=== PATIENT | female | born 1945 | race Caucasian/White ===

== ENCOUNTER 2024-04-12 08:52 | Outpatient (AMB) | payer MEDICARE, SELFPAY ==
--- NOTE | 2024-04-12 09:04 | A.OFFVIS_ITS ---
VS Expanded 04/12/24 09:05 04/14/24 09:04 Height 5 ft 7 in 5 ft 7 in Weight 162 lb 0.636 oz 162 lb BMI 25.4 25.4 Intake Visit Reasons: Overweight Nutrition Presentation Details: Patient presents for medical nutrition therapy for overweight with type 2 diabetes. Patient was referred by PCP and Caleb Heredia meal 2 large cups of coffee throughout the day with milk or cream and no sugar added Gets up early B: 4 am eggs and multigrain water 10 am 1 -2 protein pancakes 12: banana 3 pm turkey tenderloin, saute veggies (zucchinis/pepper) 5pm: cereal cheerios /milk physical activity: daily life activities eoth/smoking: --- BS Monitoring Most Recent Diabetes Results: No Data to Display CEY-Tikymhi-Xl.Jeor Equation Height: 5 ft 7 in Weight: 162 lb Resting Metabolic Rate: 1257.87 Calculated Activity Level: Mild Activity Calories Needed to Maintain Weight: 1729.57 Diagnosis Nutrition problem #1: food nutri know defi As related to (etiology) #1: diagnosis As evidenced by (sign/symptom) #1: knowledge deficit of diet Assessment & Plan Assessment & Plan (1) T2DM (type 2 diabetes mellitus): Code(s): E11.9 - Type 2 diabetes mellitus without complications Category: Medical Plan: Wt: 74 Kg ( 04/2024 ) Est kcal needs as per MSJ: 1800 (40% carb, 30% protein/fat) Est fluid needs as per 30 ml/d: 2200 Est prot per day as per 1 g/kg bw: 74 Recommend fiber intake : 8-10 g per day and gradually increase to 25-28 g per day for women and 35-38 g for men or as tolerated Recommend sodium intake per day : less than 2000 mg Educated patient on: ( R = reviewed V = verbalizes understanding N/R = needs review N/A = not applicable * Food sources of carbohydrate, adequate serving sizes and its role in various health conditions: R * Differences between complex carbohydrates a simple carbohydrates, role of fiber in diet: R * Lean protein sources of foods: R * Differences between types of fats and role in diet (mono on saturated fat fatty acids, saturated fatty acids, trans fats): R V N/R * Food sources of sodium in salt and healthy modifications for heart health in kidney health: R V R/V * Vitamins and minerals: R V N/R * Healthy plate method concept: R * Physical activity: Benefits a precaution: R V N/R * Hypoglycemia protocol (rule of 15): R V N/R * Dietary prevention of Hyperglycemia: R Patient Instructions: Work on reducing sugars , have a fruit in place of pastries follow healthy plate method at dinner Coding Level of Care Code Nutr Indiv Intake (59845) Diagnoses T2DM (type 2 diabetes mellitus) E11.9 Time Spent (min) 30
[2024-04-12 09:05] VITALS: BMI 25.4
[2024-04-14 09:04] VITALS: BMI 25.4
== END 2024-04-13 08:11 | disposition home or self-care (01) ==
PROVIDERS: PCP Internal Medicine; Visit Provider Dietitian, Registered
DX: E11.9 Type 2 diabetes mellitus without complications (principal)

== ENCOUNTER → 2024-04-12 08:52 | Outpatient (BNVA) | payer MEDICARE, SELFPAY | PROVIDERS: PCP Internal Medicine; Visit Provider Dietitian, Registered | DX: E11.9 Type 2 diabetes mellitus without complications (principal); E66.3 Overweight; Z68.25 Body mass index [BMI] 25.0-25.9, adult; Z71.3 Dietary counseling and surveillance | CPT/HCPCS: 97802 ==

== ENCOUNTER 2024-11-05 09:43 | Outpatient (AMB) | payer MEDICARE, SELFPAY ==
--- OUTSIDE RECORDS SUMMARY | 2024-11-05 09:53 | XMS_ITS | Patient Health Record ---
Author Organization [facility] Address [address] [facility] [place] [address] Care Team Providers Care Leather Goods I Assembler Name Role Phone Adam KENNY, Aden Primary Care Provider Andrea Kohler Unavailable [phone] Allergies Allergen (clinical drug ingredient) Drug/Non Drug Allergy documented on EMR Reaction Allergy Type Onset Date Status Penicillin Unknown Drug Allergy Active Reason For Referral No Information Medications Medication SIG (Take, Route, Frequency, Duration) Notes Start Date End Date Status Gabapentin 100 MG 3 capsules Orally Th ree times a day for 30 day(s) Not-Taking Vitamin D Active metFORMIN HCl 500 MG 1 tablet with a eliseo l Orally Twice a day Active Extra Depth Diabetic Shoes with 3 Pair Custom heat-molded multi-density innersoles for 1 year Dx: 02/03/2024 A ctive Social History Tobacco Use: Social History Observation Description Date Details (start date - stop date) Never Smoker NA - NA Tobacco Use/Smoking Question Answer Notes Are you a: nonsmoker Additional Findings: Tobacco Non-User Current no n-smoker Tobacco use other than smoking: Question Answer Notes Are you an other tobacco user? No Problems Problem Type SNOMED Code ICD Code Onset Dates Problem Status W/U Status Risk Notes Problem Hammer toe (197283344) Hammer toe (735.4) Active confirmed Problem Neuralgia - Neuritis (729.2) Active confirmed Problem Onychomycosis (415944954) Onychomycosis (110.1) Active confirmed Problem Pain in limb (29733604) Pain in Limb (729.5) Active confirmed Problem Polyneuropathy due to type 2 diabetes mellitus (428877461) Type 2 diabetes mellitus with diabetic polyneuropathy (E11.42) Active confirmed Vital Signs Height 5 ft 7 in in 02/03/2024 Weight 160 lbs 02/03/2024 BMI 25.06 kg/m2 02/03/2024 Procedures Procedure Date Ordered Date Performed Result Body Sit e 20943-ADXE SKIN LESIONS, 2 TO 4 02/03/2024 N/A Encounters Encounter Location Date Provider Diagnosis [facility] [place] [address] [place] [id number] 02/03/2024 Andrea Martinez Type 2 diabetes mellitus with diabetic polyneuropathy E11.42 ; Xerosis cutis L85.3 and Skin disease L98.9 Assessments Encounter Date Diagnosis (ICD Code) Assessment Notes Treatment Notes Treatment Clinical Notes Section Notes 02/03/2024 Type 2 diabetes mellitus with diabetic polyneuropathy (ICD-10 - E11.42) Patient Educated with: DIABETIC FOOT CARE INSTRUCTIONS. pdf (DIABETIC FOOT CARE INSTRUCTIONS. pdf) 02/03/2024 Xerosis cutis (ICD-10 - L85.3) 02/03/2024 Skin disease (ICD-10 - L98.9) Plan Of Treatment Pending Test Test Name Order Date 20676-GFXTETT NAIL, 6 OR MORE 03/04/2012 52169-YDXU SKIN LESIONS, 2 TO 4 02/03/20 24 Next Appt Details Provider Name:Andrea Martinez, 02/01/2025 09:00:00 AM, [address] [address], [place], [address], Insurance Providers Payer Name Payer Address Payer Phone Subscriber Number Group Number Insured Name Patient Relationship to Insured Coverage Start Date Coverage End Date Medicare National [employer] [address] [place] [address] [id number] Caroline Bellamy Self - [facility] [address] [place] [address] [id number] Josesito Caroline Self - patient is the insured Medical (General) History Medical History History ICD Code mumps measles chicken pox gall bladder problems Back,Hip,and Knee pain skin cancer covid-19 type II diabetes Joint implants/screws Surgical History Surgery Date(Month/Year) section gall bladder knee replacement appendectomy hysterectomy
--- OUTSIDE RECORDS SUMMARY | 2024-11-05 09:53 | XMS_ITS ---
Author Organization [facility] Address [address] [place] [address] Care Team Providers Care Glove Finisher Name Role Phone Aden Medina MD Primary Care Provider Andrea Kohler [phone] REASON FOR VISIT Seen Sooner Encounters Encounter Location Date Provider Diagnosis [address] [address] 04/16/2024 Andrea Martinez Plan Of Treatment Next Appt Details Provider Name:Andrea Martinez, 02/01/2025 09:00:00 AM, [facility] [address], [place], [address], Progress Notes * Caroline CHRISTIANSON LDOB: 7 (79 yo F)Acc No.[id number]:04/16/2024 Progress Notes Patient:?Caroline CHRISTIANSON Provider:?Andrea Martinez DPM :1945???Age:79 Y???Sex:Female D ate:04/16/2024 Address:[address] [place] [address], [id number] Pcp:Aden Medina MD Subjective: * Chief Complaints: * ???1. Seen Sooner. * Medical History:? Objective: * Vitals:? Assessment: Plan: * Treatment: * Images: * The named appointment provid er may or may not be the originator of this progress note, and it is not deemed complete until electronically signed by the appointment provider. Sign off status: Pending * Provider:?Andrea Martinez DPM Date:? 024 Generated for Yaya terrell/Magali/Maribeth on:?11/05/2024 09:53 AM EST
--- OUTSIDE RECORDS SUMMARY | 2024-11-05 09:53 | XMS_ITS ---
Author [facility] Address [address] [facility] [place] [address] Care Team Providers Care Front End Technician Name Role Phone Aden Medina MD Primary Care Provider Andrea Kohler Unavailable [phone] Allergies Allergen (clinical drug ingredient) Drug/Non Drug Allergy documented on EMR Reaction Allergy Type Onset Date Status Penicillin Unknown Drug Allergy Active REASON FOR VISIT Last Visit PCP 01/30/24, At Risk Footcare, Skin problem Medications Medication SIG (Take, Route, Frequency, Duration) [...] Additional Findings: Tobacco Non-User Current no n-smoker Alcohol Screen Question Answer Notes Did you have a drink containing alcohol in the p ast year? Yes Points 0 Interpretation Negative Tobacco use other than smoking: Question Answer Notes Are you an other tobacco user? No Problems Problem Type SNOMED Code ICD Code Onset Dates Problem Status W/U Status Risk Notes Problem Polyneuropathy due to type 2 diabetes mellitus (016293095) Type 2 diabetes mellitus with diabetic polyneuropathy (E11.42) Active confirmed Vital Signs Height 5 ft 7 in in 02/03/2024 Weight 160 lbs 02/03/2024 BMI 25.06 kg/m2 02/03/2024 Procedures Procedure Date Ordered Date Performed Result Body Sit e 24417-TXTW SKIN LESIONS, 2 TO 4 02/03/2024 N/A Encounters Encounter Location Date Provider Diagnosis [facility] [place] [address] [address] 02/03/2024 Andrea Martinez Type 2 diabetes mellitus [...] disease (ICD-10 - L98.9) Plan Of Treatment Medication Medication Name Sig Start Date Stop Date Notes Extra Depth Diabetic Shoes w ith 3 Pair Custom heat-molded multi-density innersoles for 1 year Dx: 02/03/2024 Treatment Notes Assessment Notes Type 2 diabetes mellitus wit h diabetic polyneuropathy Patient Educated with: DIABETIC FOOT CARE INSTRUCTIONS.pdf (DIABETIC FOOT CARE INSTRUCTIONS.pdf) Pending Test Test Name Order Date 10402-MUBY SKIN LESIONS, 2 TO 4 02/03/20 24 Next Appt Details Follow Up: 1 Year, Reason: Provider Name:Andrea Martinez, 02/01/2025 09:00:00 AM, [address] [facility] [address], [place], [address], Procedure Notes * Category Sub-Category Detail Notes Keratoma Treatment Parring or Cutting o f Benign Hyperkeratotic Lesion(s) 72478 ( 2-4 Lesions ) - The Benign hyperkeratotic lesions, as described above were pared, and/or cut utilizing a sterile 15 blade, tissue nippers, and/or dremel Progress Notes * Caroline CHRISTIANSON LDOB: 7 (79 yo F)Acc No.[id number]:02/03/2024 Progress Notes Patient:?Caroline Christianson Provider:?Andrea Martinez DPM :1945???Age:79 Y???Sex:Female D ate:02/03/2024 Address:[address] [facility] [address], [id number] Pcp:Aden Medina MD Subjective: * Chief Complaints: * ???Last Visit PCP 01/30/24At Risk FootcareSkin problem * HPI: ???At Risk footcare:?Pt States Last PCP Visit:?Date?01/30/2024 ???Skin problems:?Nature:?dryness.?Location:?B/L , Forefoot.?Duration:?several months.?Onset/Cause:?unknown.?Course:?worse.?Severity/Quality:?moderate.? * ROS:?General/Constitutional:?Nausea?denies.?Vomiting?denies.?Hunger Thirst?denies.?Loss appetite?denies.?Chills?denies.?Fatigue?denies.?Fever?denies.?Night Sweats?denies.?Unexplained weight loss?denies.?Unexplained weight gain?denies.?HEENTM:?Dentures?admits.?Dizziness?denies.?Glasses/contacts?denies.?Retinopathy?de nies.?Blurred/double vision?denies.?TMJ?denies.?Discharge/drainage?denies.?Implants?denies.?Sore throat?denies.?Dental implants?denies.?Hard of hearing ?admits.?Difficulty chewing/swallowing/speaking?denies.?Nose bleeds?denies.?Sore mouth?denies.?Respiratory:?On Oxygen?denies.?Pneumonia/pleurisy?denies.?Bronchitis?denies.?Emphysema?denies.?C oughing?denies.?Cough blood?denies.?Shortness of breath?denies.?Wheezing?denies.?Cardiovascular:?Pacemaker?denies.?MVP?denies.?WPW?denies.?CHF?denies.?Heart attack?denies.?Septal defect?denies.?Rapid beat?denies.?Chest pain ?denies.?Atrial Fib.?denies.?Murmur/Palpitations?denies.?Gastrointestinal:?Hemorrhoids?denies.?Stomach/Abdominal pain?admits.?Dark blood stool?denies.?Irritable bowel ?admits.?Constipation?admits.?Diarrhea?admits.?Hematology:?Swelling?denies.?Clots?denies.?Varicose Veins?denies.?Bruising?denies.?Bleeding problem?denies.?Genitourinary:?Blood urine?denies.?Frequent/Painfu/urination/bladder control?denies.?Kidney stones?denies.?Infection (UTI)?denies.?Nephropathy?denies.?sex trans dis (STD)?denies.?Prostate?denies.?Musculoskeletal:?Hammertoes?denies.?Bunions?denies.?Back Pain?denies.?Muscle Cramps/ Resting?denies.?Muscle cramps / walking?denies.?Generalized aches and pains?denies.?Weakness?denies.?Integ.:?Albrecht?denies.?Scars?denies.?Corns/calluses?denies.?Ingrown nails?denies.?Painful nails?denies.?Open Sores?denies.?Rashes?denies.?Neurologic:?Difficulty sleeping?denies.?Brain disorder?denies.?Numbness?denies.?Balance trouble?denies.?Confusion?denies.?Fainting/blackouts?denies.?Tingling?denies.?Tr emors?denies.? * Medical History:? * Surgical History:? s ection 1972/1973gall bladder knee replacement appendectomy hysterectomy * Hospitalization/Major Diagno stic Procedure:?No Hospitalization History. * Family History:?Mother: dece ased, multiple sclerosis.?Father: , cancer, heart attack.?Daughter(s): cancer.?Maternal Grand Father: heart attack.?Spouse: alive.? * Social History:?Tobacco Use:?Tobacco Use/Smoking?Are you a:?nonsmoker ?Additional Findings: Tobacco Non-User?Current non-smoker ?Tobacco use other than smoking?Are you an other tobacco user??No ???Drugs/Alcohol:?Drugs?Have you used drugs other than those for medical reasons in the past 12 months??No ?Alcohol Screen?Did you have a drink containing alcohol in the past year??Yes ?Points?0 ?Interpretation?Negative ???Miscellaneous:?Caffeine: yes, frequency:, 1-2 cups per day. ?Marital status: . * Medications:?TakingmetFORMIN HCl 500 MG Tablet 1 tablet with a meal Orally Twice a dayVitamin D Taking metFORMIN HCl 500 MG Tablet 1 tablet with a meal Orally Twice a dayTaking Vitamin D Not-Taking/PRNGabapentin 100 MG Capsule 3 capsules Orally Three times a dayMedication List reviewed and reconciled with the patientNot- Taking/PRN Gabapentin 100 MG Capsule 3 capsules Orally Three times a dayMedication List reviewed and reconciled with the patient * Allergies:?Penicillinyes[All ergies Verified] Objective: * Vitals:?Ht: 5 ft 7 in, Wt: 1 60, BMI:25.06, Shoe size: 9. * Examination: ???Ophthalmology Referral: ?DIABETES EYE EXAM?Neurological: ?SENSORY:? Neurological exam demonstrates, reduced vibration sensation, 5.07 monofilament test performed at plantar aspects of 5 varied sites per foot shows sensation, reduced , at Forefoot, B/L.?Vascular: ?DP PULSES:? 11/13, B/L.?PT PULSES:? 11/13, B/L.?CAPILLARY FILL TIME:?3 secs. per digit. B/L.?SKIN TEMPERTURE GRADIENT OF THE LOWER EXTERMITIES:?normal, B/L.?HAIR GROWTH/TEXTURE/ELASTICITY/TURGOR:?normal, B/L.?PIGMENTATION:?normal, B/L.?EDEMA:?absent, B/L.?TELANGECTASIA:?absent, B/L.?Dermatologic: ?SKIN FINDINGS:? Skin exam reveals Keratotic lesion(s) located at, SUB MTH (s), 1, Left, SUB MTH (s), 5, Right, Heel(s), B/L, Skin shows sign(s) of, dryness, scaling, in a stocking fashion, no fissure(s) present, B/L.?General Examination: ?GENERAL APPEARANCE:?pleasant, alert, well nourished, well developed, well hydrated, with good attention to hygene/body habitus, and in no acute distress.?ORIENTED:?person,place, and time.?FOOT EXAM:?Orthopedic: ?MUSCLE STRENGTH:?5/5 all groups in a symmetrical fashion , B/L.?FOOT MORPHOLOGY:? Pes Planus structure, LEFT.? Assessment: * Assessment: 1.?Type 2 diabetes mellitus with diabetic polyneuropathy - E11.42?2.?Xerosis cutis - L85.3?3.?Skin disease - L98.9 (Primary)? Plan: * Treatment: * Procedures:?Keratoma Treatment:?Parring or Cutting of Benign Hyperkeratotic Lesion(s)?16942 ( 2-4 Lesions ) - The Benign hyperkeratotic lesions, as described above were pared, and/or cut utilizing a sterile 15 blade, tissue nippers, and/or dremel.? * Procedure Codes:?02551 TRIM SKIN LESIONS, 2 TO 4, Modifiers: XS * Preventive Medicine:? ??Counseling:?Discussion:?-03: Office or other outpatient visit for the evaluation and management of a new patient, which required a medically appropriate history and/or examination and LOW level of DECISION MAKING for: 1 STABLE ACUTE UNCOMPLICATED PROBLEM, 2 OR MORE MINOR PROBLEMS, OR 1 STABLE CHRONIC PROBLEM, THAT POSE(S) A LOW RISK FOR MORBIDITY/MORTALITY. The visit on the day of the encounter encompassed interpreting the data and educating the patient as to the nature of their condition, treatment options available according to their individual PMH, meds, allergies, and overall health/living conditions, as well as any potential risks or complications that may occur from a failure to adhere to, and participate in, the recommended course of therapy. The discussion included a complete verbal, and/or written explanation of the examination results, any x-rays taken, the proposed diagnosis, and outline of the treatment plan. A schedule for future care needs was also explained. The patient verbalized an understanding of the instructions at this time and agreed to be an active participant in their treatment. If the patient should think of any questions or concerns after the visit, I have encouraged the patient to call the office.?Shoe Gear Counseling:?SHOE Rx - The patient was counseled in great detail on their muscoloskeletal foot and toe deformities which coincided with the dermatological presentations visualized on exam. We discussed how their deformities put the integrity of their feet at risk for potential pedal complications which makes the accomidative diabetic shoes and cutomizable inserts medically necessary. We discussed the different shoe and insert treatment types and options, as well as the important advantages for adhering to regularly wearing these accomidative devices daily. The patient was made aware of the fact that a failure to abide by these recommedations may be deleterious to their foot health as they are able to prevent many pedal complications such as skin irritation, skin ulceration, infection, and even loss of toe/foot/leg/or life. Time was also spent with the patient dispensing and discussing proper diabetic footcare techniques including daily skin moisturization, daily foot inspection for any interruption in skin integrity including open lesions, or sign of infection such as redness/malodor/drainage/swelling. Also discussed and recommended were procedures regarding daily shoe inspection for the presence of internal foreign bodies as well as any visualized irregular shoe or insert wear. Patient questions re: shoes, inserts, and self foot inspections were answered to their satisfaction as the patient verbally confirmed a full understanding of the above information. A Rx for Extra Depth Orthopedic Shoes with 3 pair of custom heat-molded inserts was dispensed.?Xerosis:?The patient was counseled on the diagnosis, potential etiologies, and treatment options for their skin condition. We discussed the risks and benefits of each option from performing no treatment, to utilizing OTC topical skin creams/ointments, to utilizing prescription topical creams/ointments, to utilizing customized compounded topical medications and use of nocturnal occlusion with any/all previously detailed therapies. We discussed the advantages and disadvantages of each possible treatment and importance for adherence to all the recommended therapies for optimum success and avoid potential complications such as open sore/infection/possible hospitalization. We discussed the potential effectiveness of each topical preparation as well as each ones possible side effects and/or patient medication interactions. Patient questions re: use, dosage, successful outcomes, and application consistency were reviewed and the patient verbalized that all answers were clearly understood. The patient has decided to apply Rx skin creams to their feet save the interspaces while paying special attention to the heels. Such was sent to their pharmacy at the time of visit.? * Follow Up:?1 Year * Images: * Sign off status: Completed true * Provider:?Andrea Martinez DPM Date:? 024 Generated for Yaya terrell/Magali/Maryitting on:?11/05/2024 09:53 AM EST History and Physical Notes * HPI (History of Present Illness) Category Sub-Category Detail Notes Category Not es Skin problems Nature: dryness Location: B/L , Forefoot Duration: several months Onset/Cause: unknown Course: worse Severity/Quality: moderate At Risk footcare Pt States Last PCP Visit: Date: 4 Examination Category Sub-Category Detail Notes Category Not es Neurological SENSORY: Neurological exa m demonstrates, reduced vibration sensation, 5.07 monofilament test performed at plantar aspects of 5 varied sites per foot shows sensation, reduced , at Forefoot, B/L Dermatologic SKIN FINDINGS: Skin exam reveal s Keratotic lesion(s) located at, SUB MTH (s), 1, Left, SUB MTH (s), 5, Right, Heel(s), B/L, Skin shows sign(s) of, dryness, scaling, in a stocking fashion, no fissure(s) present, B/L Orthopedic FOOT MORPHOLOGY: Pes Planus structure, LE FT MUSCLE STRENGTH: 5/5 all groups in a symmetrical fashion , B/L General Examination GENERAL APPEARANCE: pleasant , alert, well nourished, well developed, well hydrated, with good attention to hygene/body habitus, and in no acute distress FOOT EXAM: Lower Extremity Neurological Exa m performed:: Yes Visual exam of foot performed:: Yes Date: 02/03/2024 Sensory testing performed:: sensations d iminished Pedal pulse taking performed:: 1+ ORIENTED: person,place, and ti me Ophthalmology Referral DIABETES EYE EXAM Diabeti c Retinopathy Screening:: Yes 07/2023 Vascular DP PULSES (B): 1/4, B/L PT PULSES (B): 1/4, B/L CAPILLARY FILL TIME: 3 secs. per digit. B/L TEMPERTURE GRADIENT (C): normal, B/L TROPHIC CONDITION-TEXTURE/ELASTICITY/TUR GOR/HAIR GROWTH (B): normal, B/L EDEMA (C): absent, B/L TELANGECTASIA: absent, B/L PIGMENTATION: normal, B/L
--- NOTE | 2024-11-05 11:24 | MHC.OFFWIV ---
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 Denies any flank pain, fever, or chills. Has been trying to increase water intake. [facility] Social History Patient Tobacco Use Status: Never used Tobacco Review of Systems Const All systems reviewed & are unremarkable except as noted in HPI and below Physical Exam Vital Signs: Last Vital Signs Pulse 62 11/05/24 11:25 BP 140/90 H 11/05/24 11:25 Pulse Ox 99 11/05/24 11:25 Oxygen Delivery Method Room Air 11/05/24 11:25 Const General: cooperative, healthy appearing, comfortable and no acute distress Limitations: no limitations HEENT Head: Yes normal to inspection Ears: hearing grossly normal bilaterally Resp Effort & Inspection: normal respiratory effort Auscultation: clear to auscultation bilaterally Cardio Rate: regular rate Rhythm: regular rhythm General: Yes bladder normal to palpation and Yes no CVA tenderness Bimanual exam- vagina & uterus: bladder normal to palpation Back/Spine/Pelvis Back: no CVA tenderness Skin General skin exam: no rashes or lesions noted Extrem General: Yes capillary refill normal and Yes no clubbing, cyanosis or edema Psych Appearance: grossly normal Mental Status: mental status grossly normal Speech and movement: Normal speech and movement present Results AMB Urinalysis, Automated UA Leukoctes 125 Razia/uL Last Edit by JESENIA Perez on 11/05/24 11:44 UA Nitrite Negative Last Edit by JESENIA Perez on 11/05/24 11:44 UA Urobilinogen 0.2 mg/dL Last Edit by JESENIA Perez on 11/05/24 11:44 UA Protein 15 mg/dL Last Edit by JESENIA Perez on 11/05/24 11:44 UA pH 5.5 Last Edit by JESENIA Perez on 11/05/24 11:44 UA Blood 10 Ruslan/uL Last Edit by JESENIA Perez on 11/05/24 11:44 UA Specific [place] 1.025 Last Edit by JESENIA Perez on 11/05/24 11:44 UA Ketone Negative Last Edit by JESENIA Perez on 11/05/24 11:44 UA Bilirubin 0 mg/dL Last Edit by JESENIA Perez on 11/05/24 11:44 UA Glucose 1000 mg/dL Last Edit by JESENIA Perez on 11/05/24 11:44 Assessment & Plan Assessment & Plan (1) Urinary tract infection: Code(s): N39.0 - Urinary tract infection, site not specified Qualifiers: Urinary tract infection type: acute cystitis Plan: Will start patient on Macrobid and Pyridium for UTI. Reviewed indications, use, possible side effects of these medications. Recommended increased fluid intake. If she does not improve with treatment, or if symptoms worsen/new symptoms develop, she should return to the clinic for further evaluation. She verbalizes understanding and agrees to plan. Orders: Orders AMB Urinalysis Automated Today Z13.9 - Encounter for screening, unspecified Medications: New nitrofurantoin macrocrystal Take twice a day with food for 5 days. 100 mg PO BID 5 days 10 caps 0RF N39.0 - Urinary tract infection, site not specified phenazopyridine Take three times a day by mouth as needed for urinary discomfort. 200 mg PO TID PRN 6 tabs 0RF pain N39.0 - Urinary tract infection, site not specified Coding Level of Care Code Est Pt Level 4 (24845) Diagnoses Urinary tract infection N39.0 Urinary tract infection type: acute cystitis
[2024-11-05 11:25] VITALS: BP 140/90; PULSE 62; O2SAT 99
== END 2024-11-05 11:44 | disposition home or self-care (01) ==
PROVIDERS: PCP Internal Medicine; Visit Provider Nurse Practitioner Family
DX: N39.0 Urinary tract infection, site not specified (principal); Z13.9 Encounter for screening, unspecified

== ENCOUNTER → 2024-11-05 09:43 | Outpatient (BNVA) | payer MEDICARE, SELFPAY | PROVIDERS: PCP Internal Medicine; Visit Provider Nurse Practitioner Family | DX: N39.0 Urinary tract infection, site not specified (principal) | CPT/HCPCS: 81003; 99212 ==